=== PATIENT | male | born 1990 | race African-American/Black ===

== ENCOUNTER 2021-05-30 14:00 | Emergency (ER) | payer OTHER, SELFPAY ==
[2021-05-30 14:05] VITALS: BP 125/83; PULSE 72; RESP 20; TEMP 36.9; O2SAT 97
[2021-05-30] MEDS: PROPARACAINE 0.5% OPHTH SOL 1 DROPS EYE-RIGHT (14:12)
--- NOTE | 2021-05-30 15:17 | PC.NURSE ---
1 drop of proparacaine added to the right eye. provider aware.
[2021-05-30] MEDS: FLUORESCEIN 1 MG STRIP EYE-LEFT (15:53)
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
== END 2021-05-30 16:07 | disposition home or self-care (01) ==
PROVIDERS: Emergency Provider Physician Assistant
DX: S05.01XA Injury of conjunctiva and corneal abrasion without foreign body, right eye, initial encounter (principal); W50.0XXA Accidental hit or strike by another person, initial encounter; Y93.67 Activity, basketball
CPT/HCPCS: 99282

== ENCOUNTER 2021-06-17 02:03 | Emergency (ER) | payer OTHER, SELFPAY ==
[2021-06-17 02:05] VITALS: BP 144/78; PULSE 72; RESP 16; TEMP 37.3; O2SAT 96; BMI 31.6
--- NOTE | 2021-06-17 02:11 | DI.RAD.S_ITS ---
PROCEDURE: XR ANKLE RT MIN 3V INDICATIONS: pain, swelling with injury today TECHNIQUE: 3 views of the ankle were acquired. COMPARISON: [facility], CR, XR KNEE RT 3V, 06/17/2021, 2:14. FINDINGS: Bones: No franky acute fractures or dislocations. Remote appearing, well corticated avulsion fracture fragments can be seen distal to the medial and lateral malleoli. Ankle mortise is normally aligned. No suspicious bony lesions. The talar dome demonstrates no franky abnormality. Soft tissues: Soft tissue swelling is seen, particularly laterally. IMPRESSION: Soft tissue swelling is seen, without an acute bony abnormality seen by plain film. If there is point tenderness (or other clinical suspicion for a fracture not seen on these images) then a dedicated CT or a short-term followup plain film series could be considered for further evaluation, as clinically appropriate. Note: No significant discrepancy from the preliminary report. Dictated by: Allen Ricci M.D. on 06/17/2021 at 7:59 Approved by: Allen Ricci M.D. on 06/17/2021 at 8:00
--- NOTE | 2021-06-17 02:11 | DI.RAD.S_ITS ---
PROCEDURE: XR KNEE RT 3V INDICATIONS: lateral knee pain, severe ankle injury TECHNIQUE: 3 views of the knee were acquired. COMPARISON: [facility], CR, XR ANKLE RT MIN 3V, 06/17/2021, 2:14. FINDINGS: Bones: No fractures or dislocations. No suspicious bony lesions. Soft tissues: No joint effusion. No suspicious soft tissue calcifications. IMPRESSION: Normal. Note: No significant discrepancy from the preliminary report. Dictated by: Allen Ricci M.D. on 06/17/2021 at 8:00 Approved by: Allen Ricci M.D. on 06/17/2021 at 8:01
[2021-06-17] MEDS: HYDROCODONE/ACET 5/325 PREPACK 1 BOTTLE MISC (03:21)
--- NOTE | 2021-06-17 03:24 | ED_ITS ---
HPI - Extremity Injury (Lower) General Chief Complaint: Extremity Injury, Lower Stated Complaint: RIGHT ANKLE INURY TODAY Time Seen by Provider: 06/17/21 02:11 Source: patient Mode of arrival: Wheelchair Limitations: no limitations History of Present Illness HPI Narrative: 30M daily smoker without chronic medical problems presents with right ankle pain and swelling after inverting it earlier tonight. He now has p ain, swelling and difficulty ambulating. He denies any numbness, tingling or weakness. He is otherwise well and free of complaint. Related Data Previous Rx's Medication Instructions Recorded hydrocodone 5 mg-acetaminophen 325 1 tab PO Q4-6H PRN #10 tab 06/17/21 mg tablet Review of Systems Review of Systems Narrative: GENERAL: Denies chills, fatigue, malaise, fever, sweats. HEENT: Denies sinus pain, ear pain, sore throat, difficulty swallowing, dizziness. RESPIRATORY: Denies dyspnea, cough, wheezing, hemoptysis, sputum. CARDIOVASCULAR: Denies chest pain, palpitations, orthopnea, edema, GASTROINTESTINAL: Denies nausea, vomiting, abdominal pain, diarrhea, constipation, melena. : Denies dysuria, frequency, incontinence, hematuria, urinary retention. MUSCULOSKELETAL: See HPI SKIN: Denies rash, skin lesions, or other NEUROLOGIC: Denies weakness, headache, numbness, change in speech, confusion, seizures, incoordination. PSYCHIATRIC: No concerning psychosocial issues. 12 point review of systems is negative except for those stated above Patient History Social History Smoking Status: Current every day smoker Smoking Status: Current every day smoker tobacco type: vaping alcohol intake frequency: a few times a week Substance Use Type: marijuana Exam Narrative Exam Narrative: GEN: AOx3 and in mild distress EYES: Pupils are equal, round, and reactive to light and accommodation. Extraoccular muscles are intact bilaterally. There is no subconjunctival hemorrhage or exudate. CHEST: Lungs are clear to auscultation bilaterally and free of wheezes, rales, or rhonchi. Heart rate is regular rhythm, there are no murmurs, clicks, rubs, or gallops. There is no chest wall tenderness. ABD: Abdomen is soft and nontender. There is no guarding or rebound. Bowel sounds are normal in all 4 quadrants. There is no mass or organomegaly. EXT: Notable swelling right ankle, primarily overlying lateral malleolus with some settling ecchymosis. No numbness or tingling. Cap refill less than 2 seconds. SKIN: Warm, pink, and dry. No erythema or rash Initial Vital Signs Initial Vital Signs: Vital Signs Temperature 99.2 F 06/17/21 02:05 Pulse Rate 72 06/17/21 02:05 Respiratory Rate 16 06/17/21 02:05 Blood Pressure 144/78 H 06/17/21 02:05 Pulse Oximetry 96 06/17/21 02:05 Procedures Orthopedic Splinting/Casting Injury #1: Side: right Lower Extremity Injury Location: ankle Lower Extremity Immobilizer: boot orthosis Other Orthopedic Equipment: crutches Post splinting neuro exam: intact Post splinting vascular exam: intact Placed by: Nursing Course Orders Ordered: ED Orders 06/17/21 02:11 XR ankle RT min 3V Stat XR knee RT 3V Stat Discontinued Medications Hydrocodone Bitart/Acetaminophen (Hydrocodone/Acet 5/325 Prepack) 1 bottle MISC SEEINSTR ONE Stop: 06/17/21 03:16 Last Admin: 06/17/21 03:21 Dose: 1 bottle Documented by: GILES Vital Signs Vital signs: Vital Signs - 8 hr 06/17/21 02:05 Temperature 99.2 F Pulse Rate 72 Respiratory Rate 16 Blood Pressure 144/78 H Pulse Oximetry 96 MDM - Extremity Injury (Lower) Imaging Data Extremity x-ray #1: Radiologist's Impression: No fracture or dislocation of ankle or knee Discharge Plan Departure Patient Disposition: Home Clinical Impression: Ankle sprain and strain Instructions: DI for Ankle Sprain Activity Restrictions/Additional Instructions: *You have been diagnosed with [severe right ankle sprain, possible ligamentous disruption, concern for high ankle sprain or syndesmotic injury *What to do: *Please continue to take your regular medications as directed. [x ] New medication prescriptions sent to your pharmacy: [ ] [ ] New medication written as a paper prescription [ ] No new medications given *Please follow up with your primary care provider in 2-3 days, call for an appointment. Let them know you were seen in the Emergency Department and that we ask that you be seen in follow up. We will electronically transmit a record of today's note if your PCP is in our system *If you do not have a primary care provider please contact the [facility] Resource line at [phone]. They will ask some questions about your medical history and help get you set up with a doctor in the community. *Return to Emergency Department if you should have any new, worsening or concerning symptoms, such as [fever greater than 101 F, shaking chills, worsening pain, persistent vomiting or other bothersome symptoms] Prescriptions: New hydrocodone-acetaminophen 5-325 mg tablet 1 tab PO Q4-6H PRN (Reason: pain) Qty: 10 RF: 0 Referrals: Toño Rizvi MD [Physician] -
[2021-06-17 03:35] VITALS: BP 143/86; PULSE 53; RESP 20; O2SAT 94
== END 2021-06-17 03:48 | disposition home or self-care (01) ==
PROVIDERS: Emergency Provider Emergency Medicine
DX: S93.401A Sprain of unspecified ligament of right ankle, initial encounter (principal); S96.911A Strain of unspecified muscle and tendon at ankle and foot level, right foot, initial encounter; X50.1XXA Overexertion from prolonged static or awkward postures, initial encounter
CPT/HCPCS: 73562; 73610; 99282; 99283

== ENCOUNTER 2021-12-03 14:02 | Emergency (ER) | payer OTHER, SELFPAY ==
--- NOTE | 2021-12-03 14:20 | DI.RAD.S_ITS ---
PROCEDURE: XR KNEE LT 3V INDICATIONS: hyperextended, pain/swelling TECHNIQUE: 3 views of the knee were acquired. COMPARISON: None. FINDINGS: Bones: No fractures or dislocations. No suspicious bony lesions. Soft tissues: Moderate joint effusion. No suspicious soft tissue calcifications. IMPRESSION: 1. No acute osseous abnormalities. 2. Moderate knee joint effusion. 3. If clinical symptoms persist or clinical suspicion for pathology is high, a repeat examination in 7-10 days, or advanced imaging such as CT or MRI is suggested for further evaluation. Dictated by: Skye Daniel M.D. on 12/03/2021 at 15:12 Approved by: Skye Daniel M.D. on 12/03/2021 at 15:13
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
--- NOTE | 2021-12-03 18:52 | DI.CT.S_ITS ---
PROCEDURE: CT LE LT W CON INDICATIONS: severe L knee pain, effusion, cannot weight bear TECHNIQUE: Noncontrast 1-1.5 mm axial sections acquired from the mid-patella to the proximal tibia, with coronal and sagittal reformats. COMPARISON: None. FINDINGS: Image quality: Excellent. Bones: No fracture or dislocation. Soft tissues: Moderate-sized suprapatellar joint effusion. No abscess, emerged or other soft tissue abnormality. IMPRESSION: 1. No fracture or acute osseous abnormality. 2. Suprapatellar joint effusion consistent with internal derangement if there is been a history of trauma, or if clinical findings are suggestive a septic joint could also be considered. Dictated by: Rashel Thomas M.D. on 12/03/2021 at 19:14 Approved by: Rashel Thomas M.D. on 12/03/2021 at 19:18
[2021-12-03] MEDS: HYDROCODONE/ACET 5/325 TABLET 1 TAB PO (19:25)
[2021-12-03 20:01] VITALS: BP 125/78; PULSE 61; RESP 16; O2SAT 100
== END 2021-12-03 20:00 | disposition home or self-care (01) ==
PROVIDERS: Emergency Provider Emergency Medicine
DX: M23.92 Unspecified internal derangement of left knee (principal); F17.290 Nicotine dependence, other tobacco product, uncomplicated
CPT/HCPCS: 73562; 73700; 99284